=== PATIENT | male | born 1995 | race Two or more races ===

== ENCOUNTER 2020-05-14 15:34 | Emergency (ER) | payer SELFPAY ==
[~2020-05-14] VITALS: Ht 188 cm; Wt 79.4 kg
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
[2020-05-14 15:53] VITALS: BP 104/64
[2020-05-14] MEDS ORDERED: Tetanus/Diptheria/Pertussis IM ONE (16:00)
--- NOTE | 2020-05-14 16:15 | NUR ---
ED Nurse Note: Pt taken to CT.
--- NOTE | 2020-05-14 16:49 | Diagnostic Imaging Report ---
Indication: Headache Technique: Continuous helical CT scanning of the head was performed without intravenous contrast material. Axial and coronal 5 mm sections were generated. Radiation dose was minimized using automated exposure control Dose: Total Dose Length Product - DLP 1071.[address] Dose Index - CTDIvol(s) 53.4 mGy. Comparison: None FINDINGS: There is no acute intracranial hemorrhage, mass effect or cortical edema. The ventricles, cisterns and sulci are normal for age. Visualized mastoid air cells are clear. Mild mucosal thickening of the paranasal sinuses. No focal lesions of the bony calvarium or soft tissues of the scalp are seen. IMPRESSION: No evidence of acute intracranial hemorrhage, mass effect or cortical edema. No acute skull fracture. The CT scanner at [facility] is accredited by the [employer] and the scans are performed using protocols designed to limit radiation exposure to as low as reasonably achievable to attain images of sufficient resolution adequate for diagnostic evaluation.
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
[2020-05-14] MEDS ORDERED: Neosporin Oint Ud Pkt TOPIC ONE (17:39)
[2020-05-14] MEDS ORDERED: IBUPROFEN600 M1 ORAL (17:42)
[2020-05-14] MEDS ORDERED: BACITRACIN15 GM TOPIC (17:42)
[2020-05-14] MEDS ORDERED: Bacitracin Oint UD TOPIC ONE (17:45)
[2020-05-14 17:51] VITALS: BP 104/64
--- NOTE | 2020-05-14 17:51 | NUR ---
ED Nurse Note: Pt cleared by ERMD for discharge. DC instructions/prescription was given and explained to pt and verbalized understanding of teachings. All medical deviecs such as ID band removed. Pt is AAO x4, ambulatory and left with all personal belongings.
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
== END 2020-05-14 17:51 | disposition home or self-care (01) ==
LOC: EMR 16:03
DX: S00.211A Abrasion of right eyelid and periocular area, initial encounter (principal); S02.32XA Fracture of orbital floor, left side, initial encounter for closed fracture; S02.19XA Other fracture of base of skull, initial encounter for closed fracture; S02.2XXA Fracture of nasal bones, initial encounter for closed fracture; V43.52XA Car driver injured in collision with other type car in traffic accident, initial encounter; Y92.410 Unspecified street and highway as the place of occurrence of the external cause; Z23 Encounter for immunization
CPT/HCPCS: 70450; 70486; 90471; 90715; 99284